=== PATIENT | male | born 1960 ===

== ENCOUNTER 2022-07-19 14:40 | Inpatient (IN) ==
[2022-07-19] MEDS ORDERED: ONDANSETRON 4 MG/2 ML VIAL IV ONE (16:45)
[2022-07-19] MEDS ORDERED: MORPHINE 2 MG/1 ML SYRINGE IV ONE (16:45)
[2022-07-19 17:18] LABS: Basophils % 0.3 % (0.0-0.8); Eosinophils % 0.3 % (0.00-10.9); Hematocrit 38.6 VOL% (42.0-52.0); Immature Granulocytes % 0.4 %; Immature Granulocytes Absolute 0.05 #; Lymphocytes # 1.3 10*3/uL (1.4-4.0); Lymphocytes % 10.8 % (21.2-54.2); Mean Corpuscular HGB Conc 33.7 GM/DL (32-36); Mean Platelet Volume 11.3 FL (9.6-12.0); Monocytes # 0.9 10*3/uL (0.11-0.8); Monocytes % 7.4 % (1.7-12.7); Neutrophils % 80.8 % (38.7-73.9); Platelet Count 164 T/CUMM (130-400); Red Blood Count 4.15 MC/CUMM (3.8-5.5); Red Cell Distribution Width 13.3 % (9.3-17.3); White Blood Count 11.5 T/CUMM (4-12)
[2022-07-19] MEDS ORDERED: MORPHINE 2 MG/1 ML SYRINGE IV PRN (17:27)
[2022-07-19 17:28] LABS: PT Patient Result 10.7 SECS (10.1-12.1)
[2022-07-19] MEDS ORDERED: ACETAMINOPHEN 325 MG TABLET PO PRN (17:31)
[2022-07-19] MEDS ORDERED: ONDANSETRON 4 MG/2 ML VIAL IV PRN (17:31)
[2022-07-19] MEDS ORDERED: hydrALAZINE 20 MG/1 ML VIAL IV PRN (17:31)
[2022-07-19] MEDS ORDERED: BISACODYL 5 MG TABLET PO PRN (17:31)
[2022-07-19] MEDS ORDERED: ZALEPLON 5 MG CAPSULE PO PRN (17:31)
[2022-07-19] MEDS ORDERED: LACTULOSE 20 GM/30 ML UDCUP PO PRN (17:31)
[2022-07-19] MEDS ORDERED: amLODIPine 5 MG TABLET PO STA (17:35)
[2022-07-19 17:36] LABS: Albumin 3.8 G/DL (3.4-5.0); Bilirubin,Total 0.6 MG/DL (0.20-1.00); Calcium 9.2 MG/DL (8.5-10.1); Total Protein 7.3 G/DL (6.4-8.2)
[2022-07-19] MEDS ORDERED: NICOTINE 21 MG/24 HR PATCH TRANSDERM PRN (18:10)
[2022-07-19] MEDS ORDERED: LORazepam 1 MG TABLET PO PRN (18:10)
[2022-07-19 18:46] LABS: Bilirubin,Urine Negative (Negative); Blood, Urine Negative (Negative); Glucose,Urine (UA) Negative (Negative); Hyaline Casts,Urine 1 /LPF (0-3); Ketones,Urine Negative (Negative); Mucus,Urine Occasional /LPF (Occasional); Nitrite,Urine Negative (Negative); Protein,Urine Negative (Negative); RBC,Urine <1 /HPF (0-4); Squamous Epithelial Cell,Urine Occasional /HPF (0-10); Urine Appearance CLEAR (Clear); Urine Color Yellow (Yellow); Urine Specific Gravity 1.017 (1.001-1.035); Urine Urobilinogen < 2.0 eU/dL (<2.0)
[2022-07-19 18:59] LABS: Barbiturates Screen,Urine Negative (Negative); Benzodiazepines Screen,Urine Negative (Negative); Cannabinoid Screen,Urine Negative (Negative); Opiate Screen,Urine Positive (Negative); Phencyclidine Screen,Urine Negative (Negative)
[2022-07-19] MEDS ORDERED: ATORVASTATIN 20 MG TABLET PO SCH (21:00)
[2022-07-19] MEDS: MORPHINE 2 MG/1 ML SYRINGE IV PRN ×2 (21:12→23:25)
[2022-07-19] MEDS ORDERED: INFLUENZA VIRUS VACCINE 0.5 ML SYRINGE IM ONE (21:17)
[2022-07-19] MEDS: DOCUSATE SODIUM 100 MG CAPSULE PO SCH (22:55)
[2022-07-19] MEDS: DOXAZOSIN 1 MG TABLET PO SCH (22:55)
[2022-07-19] MEDS: GABAPENTIN 100 MG CAPSULE PO SCH (22:55)
[2022-07-19] MEDS: POLYETHYLENE GLYCOL POWDER 17 GM PACK PO SCH (22:56)
[2022-07-20] MEDS: MORPHINE 2 MG/1 ML SYRINGE IV PRN ×3 (02:30→08:42)
[2022-07-20 04:58] LABS: Basophils % 0.3 % (0.0-0.8); Eosinophils % 0.4 % (0.00-10.9); Hematocrit 36.4 VOL% (42.0-52.0); Hemoglobin 12.1 GM/DL (14.0-18.0); Immature Granulocytes % 0.5 %; Immature Granulocytes Absolute 0.05 #; Lymphocytes # 1.8 10*3/uL (1.4-4.0); Lymphocytes % 16.7 % (21.2-54.2); Mean Corpuscular HGB Conc 33.2 GM/DL (32-36); Mean Corpuscular Volume 93.3 FL (87-102); Mean Platelet Volume 11.7 FL (9.6-12.0); Monocytes # 0.9 10*3/uL (0.11-0.8); Monocytes % 8.6 % (1.7-12.7); Neutrophils % 73.5 % (38.7-73.9); Platelet Count 158 T/CUMM (130-400); Red Cell Distribution Width 13.5 % (9.3-17.3); White Blood Count 10.7 T/CUMM (4-12)
[2022-07-20 05:15] LABS: Risk Ratio 3.63; VLDL Cholesterol 37.4 MG/DL
[2022-07-20 05:23] LABS: Calcium 8.7 MG/DL (8.5-10.1); Osmolality,Calculated 286.1 MOS/KG (273-304); Potassium 3.4 MMOL/L (3.5-5.1); Thyroid Stimulating Hormone 2.91 uIU/ml (0.358-3.74)
[2022-07-20] MEDS ORDERED: MAGNESIUM SULF RIDER 2 GM/50 ML PREMIX IV ONE (08:00)
[2022-07-20] MEDS: DOCUSATE SODIUM 100 MG CAPSULE PO SCH ×2 (08:41→20:47)
[2022-07-20] MEDS: GABAPENTIN 100 MG CAPSULE PO SCH ×2 (08:41→20:47)
[2022-07-20] MEDS: lisinopriL 20 MG TABLET PO SCH (08:41)
[2022-07-20] MEDS: POLYETHYLENE GLYCOL POWDER 17 GM PACK PO SCH ×2 (08:41→20:48)
[2022-07-20] MEDS: OMEGA 3 ACID ETHYL ESTERS 1 GM CAPSULE PO SCH (08:41)
[2022-07-20] MEDS ORDERED: POTASSIUM CHLORIDE 20 MEQ TABLET PO ONE (09:00)
[2022-07-20] MEDS ORDERED: propofoL 200 MG/20 ML VIAL IV ONE (11:57)
[2022-07-20] MEDS ORDERED: KETAMINE 500 MG/10 ML VIAL ONE (11:57)
[2022-07-20] MEDS ORDERED: fentaNYL 100 MCG/2 ML VIAL ONE (11:57)
[2022-07-20] MEDS ORDERED: LIDOCAINE 2% 5 ML VIAL ONE (11:57)
[2022-07-20] MEDS ORDERED: SODIUM CHLORIDE 0.9% 100 ML IV ONE (11:57)
[2022-07-20] MEDS ORDERED: BUPIVACAINE SPINAL 0.75% 2 ML AMP SPINAL ONE (11:57)
[2022-07-20] MEDS ORDERED: MIDAZOLAM 2 MG/2 ML VIAL ONE (11:57)
[2022-07-20] MEDS ORDERED: buprenorphine HCL 0.3 MG/ML VIAL ONE (11:58)
[2022-07-20] MEDS ORDERED: DEXAMETHASONE 4 MG/1 ML VIAL ONE (12:06)
[2022-07-20] MEDS ORDERED: LIDOCAINE 1% 5 ML VIAL ONE (12:06)
[2022-07-20] MEDS ORDERED: ROPIVACAINE 0.5% 30 ML VIAL ONE (12:06)
[2022-07-20] MEDS ORDERED: ceFAZolin 1,000 MG VIAL ONE (12:39)
[2022-07-20] MEDS ORDERED: MAGNESIUM HYDROXIDE SUSP 30 ML UDCUP PO PRN (13:03)
[2022-07-20] MEDS ORDERED: PHENYLEPHRINE 1 MG/10 ML SYRINGE IV ONE (13:05)
[2022-07-20] MEDS ORDERED: PHENYLEPHRINE 10 MG/1 ML VIAL IV ONE (13:05)
[2022-07-20] MEDS ORDERED: ePHEDrine 50 MG/ML VIAL ONE (13:15)
[2022-07-20] MEDS ORDERED: TRANEXAMIC ACID 1,000 MG/10 ML VIAL ONE (13:20)
[2022-07-20] MEDS: KETOROLAC 30 MG/1 ML VIAL IV SCH ×2 (15:00→20:47)
[2022-07-20] MEDS ORDERED: ceFAZolin 2,000 MG/50 ML DUPLEX IV ONE (17:26)
[2022-07-20] MEDS: ceFAZolin 2,000 MG/50 ML DUPLEX IV SCH (17:27)
[2022-07-20] MEDS: ATORVASTATIN 40 MG TABLET PO SCH (20:47)
[2022-07-20] MEDS: DOXAZOSIN 1 MG TABLET PO SCH (20:47)
[2022-07-21] MEDS: KETOROLAC 30 MG/1 ML VIAL IV SCH ×2 (02:33→08:07)
[2022-07-21] MEDS: ceFAZolin 2,000 MG/50 ML DUPLEX IV SCH (02:34)
[2022-07-21 05:05] LABS: Basophils % 0.1 % (0.0-0.8); Hematocrit 32.6 VOL% (42.0-52.0); Hemoglobin 10.6 GM/DL (14.0-18.0); Immature Granulocytes % 0.5 %; Immature Granulocytes Absolute 0.06 #; Lymphocytes # 0.7 10*3/uL (1.4-4.0); Lymphocytes % 6.7 % (21.2-54.2); Mean Corpuscular HGB Conc 32.5 GM/DL (32-36); Mean Platelet Volume 11.8 FL (9.6-12.0); Monocytes # 1.1 10*3/uL (0.11-0.8); Monocytes % 9.5 % (1.7-12.7); Neutrophils % 83.2 % (38.7-73.9); Platelet Count 152 T/CUMM (130-400); Red Blood Count 3.43 MC/CUMM (3.8-5.5); Red Cell Distribution Width 13.5 % (9.3-17.3); White Blood Count 11.1 T/CUMM (4-12)
[2022-07-21 05:29] LABS: Calcium 8.9 MG/DL (8.5-10.1); Osmolality,Calculated 282.5 MOS/KG (273-304)
[2022-07-21] MEDS: DOCUSATE SODIUM 100 MG CAPSULE PO SCH ×2 (08:07→21:51)
[2022-07-21] MEDS: FONDAPARINUX 2.5 MG/0.5 ML SYRINGE SUBCUT SCH (08:07)
[2022-07-21] MEDS: POLYETHYLENE GLYCOL POWDER 17 GM PACK PO SCH ×2 (08:08→21:52)
[2022-07-21] MEDS: OMEGA 3 ACID ETHYL ESTERS 1 GM CAPSULE PO SCH (08:08)
[2022-07-21] MEDS: GABAPENTIN 100 MG CAPSULE PO SCH ×2 (08:08→21:52)
[2022-07-21] MEDS: lisinopriL 20 MG TABLET PO SCH (08:40)
[2022-07-21] MEDS ORDERED: TUBERCULIN SKIN TEST 0.1 ML SYRINGE INTRADERM ONE (11:00)
[2022-07-21] MEDS: DOXAZOSIN 1 MG TABLET PO SCH (21:51)
[2022-07-21] MEDS: ATORVASTATIN 40 MG TABLET PO SCH (21:51)
[2022-07-22 05:45] LABS: Basophils % 0.4 % (0.0-0.8); Eosinophils # 0.1 10*3/uL (0.0-0.87); Hematocrit 30.1 VOL% (42.0-52.0); Hemoglobin 9.8 GM/DL (14.0-18.0); Immature Granulocytes % 0.8 %; Immature Granulocytes Absolute 0.06 #; Lymphocytes # 1.5 10*3/uL (1.4-4.0); Lymphocytes % 19.7 % (21.2-54.2); Mean Corpuscular HGB Conc 32.6 GM/DL (32-36); Mean Corpuscular Volume 95.9 FL (87-102); Mean Platelet Volume 11.5 FL (9.6-12.0); Monocytes % 13.2 % (1.7-12.7); Neutrophils % 64.9 % (38.7-73.9); Platelet Count 141 T/CUMM (130-400); Red Blood Count 3.14 MC/CUMM (3.8-5.5); Red Cell Distribution Width 13.8 % (9.3-17.3); White Blood Count 7.7 T/CUMM (4-12)
[2022-07-22 05:58] LABS: Calcium 8.9 MG/DL (8.5-10.1); Osmolality,Calculated 291.3 MOS/KG (273-304); Potassium 3.6 MMOL/L (3.5-5.1)
[2022-07-22] MEDS: FONDAPARINUX 2.5 MG/0.5 ML SYRINGE SUBCUT SCH (09:11)
[2022-07-22] MEDS: DOCUSATE SODIUM 100 MG CAPSULE PO SCH ×2 (09:12→20:51)
[2022-07-22] MEDS: OMEGA 3 ACID ETHYL ESTERS 1 GM CAPSULE PO SCH (09:12)
[2022-07-22] MEDS: lisinopriL 20 MG TABLET PO SCH (09:12)
[2022-07-22] MEDS: GABAPENTIN 100 MG CAPSULE PO SCH ×2 (09:12→20:50)
[2022-07-22] MEDS: POLYETHYLENE GLYCOL POWDER 17 GM PACK PO SCH ×2 (09:13→20:51)
[2022-07-22] MEDS ORDERED: SODIUM CHLORIDE 0.45% 500 ML IV ONE (10:36)
[2022-07-22] MEDS ORDERED: DOCUSATE SODIUM 100 MG CAPSULE PO SCH (11:00)
[2022-07-22] MEDS ORDERED: POTASSIUM CHLORIDE 20 MEQ TABLET PO ONE (11:00)
[2022-07-22] MEDS: ATORVASTATIN 40 MG TABLET PO SCH (20:50)
[2022-07-22] MEDS: DOXAZOSIN 1 MG TABLET PO SCH (20:50)
[2022-07-23 04:50] LABS: Basophils % 0.4 % (0.0-0.8); Eosinophils # 0.1 10*3/uL (0.0-0.87); Eosinophils % 1.8 % (0.00-10.9); Hematocrit 29.4 VOL% (42.0-52.0); Hemoglobin 9.6 GM/DL (14.0-18.0); Immature Granulocytes % 0.7 %; Immature Granulocytes Absolute 0.05 #; Lymphocytes # 1.5 10*3/uL (1.4-4.0); Mean Corpuscular HGB Conc 32.7 GM/DL (32-36); Mean Corpuscular Volume 96.1 FL (87-102); Mean Platelet Volume 11.7 FL (9.6-12.0); Monocytes % 12.6 % (1.7-12.7); Neutrophils % 65.5 % (38.7-73.9); Platelet Count 155 T/CUMM (130-400); Red Blood Count 3.06 MC/CUMM (3.8-5.5); Red Cell Distribution Width 13.7 % (9.3-17.3); White Blood Count 7.6 T/CUMM (4-12)
[2022-07-23 05:24] LABS: Calcium 8.7 MG/DL (8.5-10.1); Osmolality,Calculated 290.1 MOS/KG (273-304); Potassium 3.8 MMOL/L (3.5-5.1)
[2022-07-23 07:22] VITALS: BP 128/65
== END 2022-07-23 09:30 | disposition swing bed (61) | DRG 482 ==
LOC: N.ED 14:40 → N.EDINP 17:31 → N.3E 20:08
PROVIDERS: ADMIT Hospitalist; ATTEND Hospitalist